=== PATIENT | male | born 1955 | race Caucasian/White ===

== ENCOUNTER 2016-08-16 11:06 | Emergency (ER) | payer OTHER ==
[2016-08-16 11:40] VITALS: TEMP 98.9; BMI 43.9
[2016-08-16 12:02] LABS: LEUKOCYTES/URINE NEG (NEGATIVE); NITRITE/URINE NEG (NEGATIVE); URINE OCCULT BLOOD NEG (NEG/TRACE); WBC/URINE 0-2 (0-2)
[2016-08-16] MEDS ORDERED: NS 1,000 ML IV ONE (13:08)
[2016-08-16] MEDS ORDERED: MORPHINE 4 MG/ML INJECTION IV ONE (13:08)
[2016-08-16] MEDS ORDERED: ONDANSETRON HCL 4 MG/2 ML VIAL IV ONE (13:08)
--- NOTE | 2016-08-16 13:11 | EDPRACDOC ---
- General Information Chief Complaint: Male Urogenital Problems Stated Complaint: KIDNEY PAIN Time Seen by Provider: 08/16/16 13:04 Information Source: Patient Mode Of Arrival: Car Home Medications: Home Medications Amlodipine Besylate [Norvasc] 10 mg PO DAILY 08/16/16 Aspirin (Enteric Coated) [Ecotrin] 81 mg PO DAILY 08/16/16 Atorvastatin Calcium [Lipitor] 20 mg PO DAILY 08/16/16 Colesevelam HCl [Welchol] 625 mg PO DAILY 08/16/16 Hydrocodone Bit/Acetaminophen [Lortab 5/325] 1 tab PO Q4-6H PRN #15 tab Meloxicam [Mobic] 15 mg PO DAILY 08/16/16 Metoprolol Succinate (XL) [Toprol Xl] 50 mg PO DAILY 08/16/16 Ondansetron HCl [Zofran] 4 mg PO Q8H PRN #15 tab 08/16/16 Valsartan/Hydrochlorothiazide [Valsartan-Hctz 320-25 mg Tab] 1 tab PO DAILY 10/01 Zolpidem Tartrate [Ambien] 10 mg PO HS PRN 08/16/16 Allergies/Adverse Reactions: Allergies Allergy/AdvReac Type Severity Reaction Status Date / Time Penicillins Allergy Rash-Genera Verified 08/16/16 11:40 lized - History of Present Illness Onset: TUESDAY HPI: Pt c/o R flank pain radiating to RLQ pain with diaphoresis and nausea x 1 week. Denies changes in bowel or bladder, rash, groin pain, testicle pain, Pain Location: Reports: Right, Flank Pain Radiates To: Reports: Other (RLQ) Pain Caused By: Reports: Spontaneous Circumstances: Reports: Unknown Relevant History: Reports: Urolithiasis Pain Severity: Reports: Moderate Pain Quality: Reports: Aching, Sharp, Stabbing Worsened By: Reports: Nothing Associated Signs and Symptoms: Reports: Abdominal Pain, Nausea ED Past Medical History - History Reviewed Yes Nurses notes reviewed and agree except as marked - Patient Medical History Cardiac History: Reports: Hypertension Surgical History: Reports: Cholecystectomy, Tonsillectomy/Adnoidectomy - Social Medical History Smoking Status: Never smoker ETOH: None Substance Abuse: None EDM Review of Systems - Review of Systems Constitutional: No Symptoms Reported. negative: Fever, Chills, Weakness, Fatigue, Loss of Appetite Respiratory: No Symptoms Reported. negative: Cough, Brassy Cough, Barky Cough, Shortness of Breath, Wheezing, Hemoptysis Cardiovascular: No Symptoms Reported. negative: Chest Pain, Palpitations, Syncope, Edema, Orthopnea, PND, Skin Mottling, Cyanosis Gastrointestinal: Nausea, Pain Genitourinary: Flank Pain Neurological: No Symptoms Reported. negative: Headache, Dizziness, Seizure, Numbness, Weakness, Speech Difficulty, Gait Difficulty Musculoskeletal: Back Integumentary: No Symptoms Reported. negative: Itching, Rash, Bruising, Wound Allergic/Immunologic: No Symptoms Reported. negative: Hives, Itching Hematologic: No Symptoms Reported. negative: Lymphadenopathy, Easy Bruising, Easy Bleeding Psychiatric: No Symptoms Reported. negative: Anxiety, Depression, Hallucinations, Insomnia, Suicidal - Physical Exam Constitutional: Alert Oriented to: Time, Person, Place Last recorded Vital Signs: Last Vital Signs Temp 98.9 F 08/16/16 11:37 Pulse 81 08/16/16 13:01 Resp 18 08/16/16 13:01 BP 161/87 08/16/16 13:01 Pulse Ox 94 08/16/16 13:01 Oxygen Pulse Oxygen Saturation 94 O2 Device Room Air Oxygen Flow Rate Fraction of Inspired Oxygen ( FIO2) - HEENT Head: Normal ( normocephalic) Eye Exam: Normal (PERRL, EOMI, Sclera white) Neck: Normal (FROM, trachea at midline) - Respiratory/Cardiovascular Respiratory: Normal - CTA (BBS clear to auscultation without adventitious sounds ) Cardiovascular: Normal (RRR without murmur, gallop or rub) - GI Auscultation: Normal (NABS) Palpation: Normal (Soft,No rebound or guarding, non distended) Tenderness: Non tender Padilla's Sign: Negative - Musculoskeletal Back: Normal (Non-Tender) Extremities: Normal (Normal tone, Pulses 2+ No cyanosis or edema, FROM) - Integumentary Skin: Normal, Warm, Dry Lymphatics: Normal (no adenopathy) - Neurologic Memory Impaired: Normal Motor Function: Normal (Normal tone, Pulses 2+ No cyanosis or edema, FROM) Mood Description: Normal Perception: Normal. negative: Auditory Hallucinations, Visual Hallucinations, Other ED Back Exam - Neurologic Motor Deficit: None (strength 5/5, sensation nl) Reflexes: Normal (CN II-X11 intact) - Musculoskeletal Cervical: Normal Thoracic: Normal Lumbar: Normal Midline: Normal Paraspinous: Normal Straight Leg Raise: Negative Pelvis: Normal - Differential Diagnosis Appendicitis, Bowel obstruction, DJD, Musculoskeletal pain, Strain, Urolithiasis , Urinary tract infection - Results 08/16/16 13:23 08/16/16 13:23 Urine Color Yellow 08/16/16 11:41 Urine Clarity Clear 08/16/16 11:41 Urine pH 6.0 (5.0-8.0) 08/16/16 11:41 Ur Specific [place] 1.020 (1.003-1.035) 08/16/16 11:41 Urine Protein 1+ (NEG/TRACE) H 08/16/16 11:41 Urine Glucose (UA) Neg (NEGATIVE) 08/16/16 11:41 Urine Ketones Neg (NEGATIVE) 08/16/16 11:41 Urine Occult Blood Neg (NEG/TRACE) 08/16/16 11:41 Urine Nitrite Neg (NEGATIVE) 08/16/16 11:41 Urine Bilirubin Neg (NEGATIVE) 08/16/16 11:41 Urine Urobilinogen <2.0 MG/DL (0-1) 08/16/16 11:41 Ur Leukocyte Esterase Neg (NEGATIVE) 08/16/16 11:41 Urine RBC 2-5 (0-2) H 08/16/16 11:41 Urine WBC 0-2 (0-2) 08/16/16 11:41 Urine Bacteria Few (NEG/FEW) 08/16/16 11:41 Urine Mucus Sm amt (NEG/OCC) 08/16/16 11:41 Lab Results 08/16/16 11:41 Urine Color Yellow Urine Clarity Clear Urine pH 6.0 Ur Specific [place] 1.020 Urine Protein 1+ H Urine Glucose (UA) Neg Urine Ketones Neg Urine Occult Blood Neg Urine Nitrite Neg Urine Bilirubin Neg Urine Urobilinogen <2.0 Ur Leukocyte Esterase Neg Urine RBC 2-5 H Urine WBC 0-2 Urine Bacteria Few Urine Mucus Sm amt - Diagnostic Imaging Abdomen Image interpreted by: Radiologist IMPRESSION: 1. No urinary tract calculi or hydronephrosis. 2. Normal appendix, without other explanation for right-sided pain. Decision Time to Discharge: 15:30 - Departure Disposition: Home Condition: Good Final Diagnosis: Flank pain, acute Instructions: Non-pharmacological Pain Management Therapies for Adults (GEN), Abdominal Pain (ED), Flank Pain (ED) Education/Counseling Given To: Patient Education/Counseling Given Regarding: Diagnosis, Treatment, Follow Up Referrals: Hola Blel MD [Primary Care Provider] - One Week Prescriptions: Hydrocodone Bit/Acetaminophen [Lortab 5/325] 1 tab PO Q4-6H PRN #15 tab PRN Reason: Pain Ondansetron HCl [Zofran] 4 mg PO Q8H PRN #15 tab PRN Reason: Nausea/Vomiting Additional Instructions: Return for worse or different symptoms.
[2016-08-16 13:31] LABS: AUTOMATED BASOPHIL 0.5 % (0-2); AUTOMATED EOSINOPHIL 1.2 % (0-5); AUTOMATED MONOCYTE 7.1 % (3-10); AUTOMATED NEUTROPHIL 69.2 % (45-76); MPV 8.1 fL (7.4-10.4)
[2016-08-16 13:42] LABS: BLOOD UREA NITROGEN 18 MG/DL (9-20); CALCIUM 8.8 MG/DL (8.4-10.2); CALCULATED OSMOLALITY 275 MOs/Kg (270-290); CHLORIDE 104 mEq/L (98-107); GLUCOSE 91 MG/DL (70-99); SODIUM LEVEL 142 mEq/L (137-146)
--- NOTE | 2016-08-16 15:21 | DIRPT ---
CLINICAL DATA: Right-sided flank pain for 1 week. Prior cholecystectomy. EXAM: CT ABDOMEN AND PELVIS WITHOUT CONTRAST TECHNIQUE: Multidetector CT imaging of the abdomen and pelvis was performed following the standard protocol without IV contrast. COMPARISON: None. FINDINGS: Lower chest: Clear lung bases. Mild cardiomegaly, without pericardial or pleural effusion. Hepatobiliary: Normal liver. Cholecystectomy, without biliary ductal dilatation. Pancreas: Normal, without mass or ductal dilatation. Spleen: Normal in size, without focal abnormality. Adrenals/Urinary Tract: Normal adrenal glands. No renal calculi or hydronephrosis. No hydroureter or ureteric calculi. No bladder calculi. Stomach/Bowel: Normal stomach, without wall thickening. Scattered colonic diverticula. Normal terminal ileum and appendix. Normal small bowel. Vascular/Lymphatic: Aortic and branch vessel atherosclerosis. No abdominopelvic adenopathy. Reproductive: Normal prostate. Other: No significant free fluid. Tiny bilateral fat containing inguinal hernias. A tiny fat containing ventral abdominal wall hernia. Musculoskeletal: No acute osseous abnormality. IMPRESSION: 1. No urinary tract calculi or hydronephrosis. 2. Normal appendix, without other explanation for right-sided pain. Electronically Signed By: Lyle Deluca M.D. On: 08/16/2016 15:18
[2016-08-16 15:47] VITALS: BP 159/80; PULSE 73
== END 2016-08-16 15:45 | disposition home or self-care (01) ==
LOC: ED 11:06 → EDMC 15:45
DX: R10.9 Unspecified abdominal pain (principal)
CPT/HCPCS: 36415; 74176; 80053; 81001; 85025; 96361; 96374; 96375; 99284; J2270; J2405